=== PATIENT | female | born 1980 | race Caucasian/White ===

== ENCOUNTER 2018-08-10 07:55 | Day surgery (SDC) | payer MEDICARE, MEDICAID ==
[~2018-08-10 07:55] MED LIST: Lactated Ringers 1,000 ML IV SCH
[2018-08-10] MEDS ORDERED: Propofol 200 MG/20 ML SDV IV ONE (09:00)
[2018-08-10] MEDS ORDERED: Lidocaine 1% 30 ML SDV INJECT ONE (09:00)
--- NOTE | 2018-08-10 09:43 | PCM.OPNOTE ---
- General Post-Op/Procedure Note Date of Surgery/Procedure: 08/10/18 Operative Procedure(s): c scope Findings: internal hemorrhoids Pre Op Diagnosis: BRBPR Post-Op Diagnosis: internal hemorrhoids Anesthesia Technique: MAC Primary Surgeon: Lavelle Cooper Anesthesia Provider: Evelin Petty Pathology: none Complications: None Condition: Good Free Text/Narrative:: see dictation
--- NOTE | 2018-08-10 11:10 | OR ---
DATE OF OPERATION: 08/10/2018 SURGEON: Lavelle Cooper MD PROCEDURE PERFORMED: Colonoscopy. PREOPERATIVE DIAGNOSIS: Bright red blood per rectum. POSTOPERATIVE DIAGNOSIS: Internal hemorrhoids. INDICATIONS FOR PROCEDURE: This is a 38-year-old white female, who has a history of bleeding per rectum. She was offered and accepted colonoscopy. DESCRIPTION OF PROCEDURE: After an excellent IV sedation was administered, digital rectal exam was performed. No marked abnormality was noted. Flexible colonoscope was inserted and advanced to the cecum without difficulty. Prep was excellent. The following findings were noted. Ascending colon, unremarkable. Transverse colon, unremarkable. Descending colon, unremarkable. Sigmoid and rectum, unremarkable. On retroflexion of the scope, there was evidence of grade 1 internal hemorrhoids, otherwise unremarkable. Colon was deflated. Scope was removed. The patient was taken to recovery. RECOMMENDATIONS: Repeat colonoscopy in 10 years. High-fiber diet. Anusol cream for flare-ups. /[id number] SHONDA/[id number]
== END 2018-08-10 10:27 | disposition home or self-care (01) ==
LOC: FB.SDS 07:55
PROVIDERS: ATTEND Surgery
DX: K64.0 First degree hemorrhoids (principal); I10 Essential (primary) hypertension; J45.909 Unspecified asthma, uncomplicated; E66.01 Morbid (severe) obesity due to excess calories; F17.210 Nicotine dependence, cigarettes, uncomplicated; E78.5 Hyperlipidemia, unspecified; F32.9 Major depressive disorder, single episode, unspecified; G47.30 Sleep apnea, unspecified; F41.9 Anxiety disorder, unspecified; Z79.899 Other long term (current) drug therapy; Z88.8 Allergy status to other drugs, medicaments and biological substances; Z80.0 Family history of malignant neoplasm of digestive organs
CPT/HCPCS: 00812; 45378; 81025; J7120; J2704

== ENCOUNTER 2024-06-19 23:18 | Emergency (ER) | payer MEDICARE, MEDICAID ==
[2024-06-20 00:08] LABS: HEMATOCRIT 24.1 % (34.2-48.2); MEAN CORPUSCULAR HGB CONC 33.3 g/dL (31.9-34.8); MEAN CORPUSCULAR VOLUME 95.9 fL (76.7-100.5); MEAN PLATELET VOLUME 7.4 fL (7.1-12.4); PLATELET COUNT,PLT 298 x10(3)uL (151-488); RED BLOOD CELL COUNT 2.52 x10(6)uL (3.60-5.20); RED CELL DISTRIBUTION WIDTH 25.6 % (12.3-16.5)
[2024-06-20] MEDS: Sodium Chloride 0.9% 1,000 ML IV ONE ×2 (00:09→02:31)
[2024-06-20 00:14] LABS: BASE EXCESS VENOUS,POC -4 mmol/L (-2 - 3+); PCO2 VENOUS,POC 26 mmHg (41-51); PH VENOUS,POC 7.49 pH Units (7.32-7.43)
[2024-06-20] MEDS: Meropenem 1 GM SDV IVPUSH ONE (00:15)
[2024-06-20 00:17] LABS: BLOOD UREA NITROGEN,BUN 10 mg/dL (7-18); CALCIUM 8.5 mg/dL (8.6-10.2); CARBON DIOXIDE,CO2 21 mmol/L (21-32); CHLORIDE,CL 100 mmol/L (100-110); EST CRCL DRUG DOSING (CG) 63.25 mL/min; ESTIMATED GFR 70 mL/min (>60); GLUCOSE RANDOM 194 mg/dL (80-116); POTASSIUM,K 3.9 mmol/L (3.5-5.3); SODIUM,NA 136 mmol/L (135-145)
[2024-06-20 00:23] LABS: A/G RATIO 0.5; ALANINE AMINOTRANSFERASE,ALT 22 U/L (12-36); ALBUMIN 2.1 g/dL (3.5-5.2); ALKALINE PHOSPHATASE 170 IU/L (56-112); ASPARTATE AMNIOTRANSFERASE,AST 27 IU/L (5-25); BILIRUBIN TOTAL 0.5 mg/dL (0.1-1.3)
[2024-06-20] MEDS: VANCOmycin 1.75 GM/350 ML 1.75 GM in Premix Bag 1 BAG IV ONE (00:28)
[2024-06-20] MEDS: Acetaminophen 650 MG Supp RECTAL ONE (00:31)
[2024-06-20 00:38] LABS: WHITE BLOOD CELL COUNT,WBC 32.4 x10-3/uL (3.0-10.3)
[2024-06-20 00:39] LABS: BAND PERCENT MAN 12 % (0-6); LYMPHOCYTES PERCENT MAN 5 % (13-37); MONOCYTES PERCENT MAN 3 % (4-12); SEG NEUTROPHILS PERCENT MAN 80 % (46-82)
[2024-06-20] MEDS: Magnesium Sulfate/Water 2 GM in Premix Bag 1 BAG IV ONE (02:19)
[2024-06-20 02:44] LABS: BILIRUBIN,URINE NEGATIVE (NEGATIVE); GLUCOSE,URINE NORMAL (NORMAL); KETONES,URINE NEGATIVE (NEGATIVE); LEUKOCYTE ESTERASE,URINE NEGATIVE (NEGATIVE); NITRITE,URINE NEGATIVE (NEGATIVE); OCCULT BLOOD,URINE NEGATIVE (NEGATIVE); PROTEIN,URINE NEGATIVE (NEGATIVE); UROBILINOGEN,URINE NORMAL (NEGATIVE)
[2024-06-20 02:47] LABS: APPEARANCE,URINE CLEAR (CLEAR); BACTERIA,URINE FEW (NS); COLOR,URINE YELLOW (YELLOW); RBC,URINE 0-5 (0-5); SQUAMOUS EPITHELIAL CELLS,UR OCCASIONAL (NS,R,O); WBC,URINE 0-5 (0-5)
== END 2024-06-20 02:33 ==
LOC: FB.ED 23:18
DX: A41.9 Sepsis, unspecified organism (principal); C15.9 Malignant neoplasm of esophagus, unspecified; E87.20 Acidosis, unspecified; E88.09 Other disorders of plasma-protein metabolism, not elsewhere classified; E83.42 Hypomagnesemia; D84.821 Immunodeficiency due to drugs; R74.8 Abnormal levels of other serum enzymes; I10 Essential (primary) hypertension; E78.00 Pure hypercholesterolemia, unspecified; J44.9 Chronic obstructive pulmonary disease, unspecified; E11.9 Type 2 diabetes mellitus without complications; E66.9 Obesity, unspecified; F17.210 Nicotine dependence, cigarettes, uncomplicated; Z79.60 Long term (current) use of unspecified immunomodulators and immunosuppressants; Z79.899 Other long term (current) drug therapy; Z88.8 Allergy status to other drugs, medicaments and biological substances; Z68.33 Body mass index [BMI] 33.0-33.9, adult
CPT/HCPCS: 36415; 71045; 80053; 81001; 82803; 83605; 83690; 83735; 84484; 85025; 86140; 87040; 93005; 93010; 96365; 96366; 96375; 99285; 99285-25; J2185; J3372; J3475; J7030; U0002

== ENCOUNTER 2024-09-27 16:07 | Emergency (ER) | payer MEDICARE, MEDICAID ==
[2024-09-27] MEDS: Ondansetron 4 MG/2 ML SDV IVPUSH ONE (16:21)
[2024-09-27] MEDS: Sodium Chloride 0.9% 1,000 ML IV ONE (16:22)
[2024-09-27 16:25] LABS: PLATELET COUNT,PLT 170 x10(3)uL (151-488)
[2024-09-27 16:27] LABS: HEMATOCRIT 22.4 % (34.2-48.2); HEMOGLOBIN 7.4 g/dL (11.4-15.5); MEAN CORPUSCULAR HEMOGLOBIN 32.2 pg (23.9-33.9); MEAN CORPUSCULAR HGB CONC 33.1 g/dL (31.9-34.8); MEAN CORPUSCULAR VOLUME 97.5 fL (76.7-100.5); MEAN PLATELET VOLUME 9.6 fL (7.1-12.4); RED BLOOD CELL COUNT 2.29 x10(6)uL (3.60-5.20); RED CELL DISTRIBUTION WIDTH 20.5 % (12.3-16.5)
[2024-09-27 16:28] LABS: BLOOD UREA NITROGEN,BUN 14 mg/dL (7-18); BUN/CREATININE RATIO 15.6 (9-20); CALCIUM 8.2 mg/dL (8.6-10.2); CARBON DIOXIDE,CO2 23 mmol/L (21-32); CHLORIDE,CL 102 mmol/L (100-110); CREATININE 0.9 mg/dL (0.55-1.02); EST CRCL DRUG DOSING (CG) 70.28 mL/min; ESTIMATED GFR 80 mL/min (>60); GLUCOSE RANDOM 162 mg/dL (80-116); POTASSIUM,K 4.3 mmol/L (3.5-5.3); SODIUM,NA 136 mmol/L (135-145)
[2024-09-27 16:39] LABS: A/G RATIO 0.4; ALKALINE PHOSPHATASE 439 IU/L (56-112); BILIRUBIN TOTAL 0.4 mg/dL (0.1-1.3); PROTEIN TOTAL,TP 5.8 g/dL (6.0-8.0)
[2024-09-27 16:44] LABS: ALANINE AMINOTRANSFERASE,ALT 152 U/L (12-36); ALBUMIN 1.7 g/dL (3.5-5.2); ASPARTATE AMNIOTRANSFERASE,AST 177 IU/L (5-25)
[2024-09-27 16:55] LABS: BAND PERCENT MAN 10 % (0-6); EOSINOPHILS PERCENT MAN 3 % (0-5); LYMPHOCYTES PERCENT MAN 13 % (13-37); MONOCYTES PERCENT MAN 3 % (4-12); SEG NEUTROPHILS PERCENT MAN 70 % (46-82)
[2024-09-27] MEDS: fentaNYL 100 MCG/2 ML SDV IVPUSH ONE (17:20)
[2024-09-27] MEDS: Cefepime 2 GM Vial IVPUSH ONE (17:46)
[2024-09-27] MEDS: VANCOmycin 1.5 GM/300 ML 1.5 GM in Premix Bag 1 BAG IV ONE (17:46)
[2024-09-27] MEDS: Cefepime 1 GM Vial IVPUSH ONE (17:47)
== END 2024-09-27 18:30 ==
LOC: FB.ED 16:07
DX: A41.9 Sepsis, unspecified organism (principal); R65.21 Severe sepsis with septic shock; K72.00 Acute and subacute hepatic failure without coma; C15.9 Malignant neoplasm of esophagus, unspecified; E87.20 Acidosis, unspecified; E88.09 Other disorders of plasma-protein metabolism, not elsewhere classified; D70.1 Agranulocytosis secondary to cancer chemotherapy; T45.1X5A Adverse effect of antineoplastic and immunosuppressive drugs, initial encounter; E86.0 Dehydration; E11.9 Type 2 diabetes mellitus without complications; I10 Essential (primary) hypertension; E78.00 Pure hypercholesterolemia, unspecified; J44.9 Chronic obstructive pulmonary disease, unspecified; E66.9 Obesity, unspecified; F17.210 Nicotine dependence, cigarettes, uncomplicated; Z79.899 Other long term (current) drug therapy; Z88.8 Allergy status to other drugs, medicaments and biological substances; Z68.33 Body mass index [BMI] 33.0-33.9, adult
CPT/HCPCS: 36415; 80053; 83605; 85025; 85379; 86140; 87040; 93005; 93010; 96361; 96365; 96375; 99285; 99285-25; J0692; J2405; J3010; J3372; J7030